=== PATIENT | male | born 1955 | race Caucasian/White ===

== ENCOUNTER 2016-12-27 15:18 | Emergency (ER) | payer OTHER ==
[~2016-12-27] VITALS: Ht 170.2 cm; Wt 104.3 kg
[2016-12-27 15:45] VITALS: BP 203/93
[2016-12-27] MEDS ORDERED: HYDROcodone/APAP 5/325MG 1 TAB TABLET PO ONE (16:30)
[2016-12-27] MEDS ORDERED: HYDR-2758 PO (17:04)
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
== END 2016-12-27 17:40 | disposition home or self-care (01) ==
LOC: ER 15:18
DX: S82.151A Displaced fracture of right tibial tuberosity, initial encounter for closed fracture (principal); I10 Essential (primary) hypertension; M19.90 Unspecified osteoarthritis, unspecified site; Y04.0XXA Assault by unarmed brawl or fight, initial encounter; Y93.89 Activity, other specified; Y99.8 Other external cause status; Y92.89 Other specified places as the place of occurrence of the external cause
CPT/HCPCS: 73562; 99284

== ENCOUNTER → 2021-09-19 | Outpatient (CLI) | payer BC ==
[~2021-09-19] MED LIST: BARIUM SULFATE 40% (APPLE) 148 GM PWD. PO ONE; HYDR-2761 PO
--- NOTE | 2021-09-19 14:07 | RAD ---
EXAMINATION: DG VIDEO SWALLOW STUDY 09/19/2021 10:01 AM HISTORY: Dysphagia COMPARISON: None. TECHNIQUE: The patient was observed swallowing various consistencies of barium under intermittent flu oroscopy. FINDINGS: Normal swallowing mechanism. No aspiration or penetration. Total fluoroscopic time:1.6 minutes. Dose:4.60 mGy. 8 cine clips saved. IMPRESSION: Normal swallow study. Please see the speech pathologist's report for details. Electronically signed by: Krissy Bernabe MD (09/19/2021 2:05 PM) [id number]
== END | disposition home or self-care (01) ==
LOC: RAD 09:39
PROVIDERS: ATTEND Internal Medicine
DX: R13.10 Dysphagia, unspecified (principal); Z79.899 Other long term (current) drug therapy; Z88.8 Allergy status to other drugs, medicaments and biological substances
CPT/HCPCS: 74230; 92611-GN